=== PATIENT | female | born 1980 | race Caucasian/White ===

== ENCOUNTER 2018-04-05 15:43 | Emergency (ER) | END 2018-04-05 18:55 | disposition home or self-care (01) ==

== ENCOUNTER 2018-10-21 11:03 | Emergency (ER) | payer OTHER ==
[~2018-10-21] VITALS: Ht 167.6 cm; Wt 98.6 kg
[~2018-10-21 11:03] MED LIST: ALPR2TAB PO; BUPR-165 PO; TEMA30CA6 PO
[2018-10-21 11:07] VITALS: Ht 167.6 cm; Wt 98.6 kg
--- NOTE | 2018-10-21 14:15 | ERD ---
ER Documentation Chief Complaint Chief Complaint C/O MID EPIGATRIC PAIN X 2 DAYS. HPI 38-year-old female, with a history of bipolar disease and cholelithiasis, presents the emergency department, complaining of mid abdominal pain for 2 days, associated with 3 episodes of diarrhea and dysuria, after, allegedly, and ingestion of fatty food. Otherwise, no fever, no chills, no respiratory symptoms. ROS All systems reviewed and are negative except as per history of present illness. Medications Home Meds Active Scripts Ibuprofen* (Motrin*) 400 Mg Tab, 400 MG PO Q8, #15 TAB Prov:ANIYA FERRARA MD 10/21/18 Ranitidine Hcl* (Zantac*) 150 Mg Tablet, 150 MG PO BID PRN for EPIGASTRIC PAIN, #20 TAB Prov:ANIYA FERRARA MD 10/21/18 Bupropion Hcl* (Wellbutrin SR*) 150 Mg Tablet.sa, 150 MG PO BID, #14 TAB.SA Prov:REJI JACKSON PA-C 04/05/18 Temazepam* (Restoril*) 30 Mg Capsule, 30 MG PO HS PRN for INSOMNIA, #7 CAP Prov:REJI JACKSON PA-C 04/05/18 Alprazolam* (Xanax*) 2 Mg Tablet, 2 MG PO QHS PRN for ANXIETY, #5 TAB Prov:REJI JACKSON PA-C 04/05/18 Allergies Allergies: Coded Allergies: Penicillins (Verified Allergy, Unknown, 10/21/18) sulfamethoxazole (Verified Allergy, Unknown, 10/21/18) trimethoprim (Verified Allergy, Unknown, 10/21/18) PMhx/Soc History of Surgery: Yes (left hand sx) Anesthesia Reaction: No Hx Neurological Disorder: No Hx Respiratory Disorders: Yes (ASTHMA) Hx Cardiac Disorders: No Hx Psychiatric Problems: No Hx Miscellaneous Medical Probl: Yes (ARTHRITIS, BIPOLAR DZ, cholelithiasis x2 years ago) Hx Alcohol Use: No Hx Substance Use: No Hx Tobacco Use: No Smoking Status: Never smoker FmHx Family History: No diabetes, No coronary disease Physical Exam Vitals Vital Signs Date Temp Pulse Resp B/P (MAP) Pulse Ox O2 O2 Flow FiO2 Time Delivery Rate 10/21/18 98.4 75 19 163/79 99 11:07 (107) Physical Exam Const: No acute distress Head: Atraumatic Eyes: Normal Conjunctiva ENT: Normal External Ears, Nose and Mouth. Neck: Full range of motion. No meningismus. Resp: Clear to auscultation bilaterally Cardio: Regular rate and rhythm, no murmurs Abd: Soft, tender in epigastric area, no peritoneal signs. Skin: No petechiae or rashes Back: No midline or flank tenderness Ext: No cyanosis, or edema Neur: Awake and alert Psych: Normal Mood and Affect Result Diagram: 10/21/18 1453 10/21/18 1453 Results 24 hrs Laboratory Tests Test 10/21/18 14:53 10/21/18 15:11 10/21/18 15:13 White Blood Count 9.1 10^3/ul Red Blood Count 4.27 10^6/ul Hemoglobin 12.3 g/dl Hematocrit 38.9 % Mean Corpuscular Volume 91.1 fl Mean Corpuscular Hemoglobin 28.8 pg Mean Corpuscular Hemoglobin Concent 31.6 g/dl Red Cell Distribution Width 13.0 % Platelet Count 384 10^3/UL Mean Platelet Volume 9.6 fl Immature Granulocytes % 0.400 % Neutrophils % 66.6 % Lymphocytes % 24.3 % Monocytes % 6.5 % Eosinophils % 1.8 % Basophils % 0.4 % Nucleated Red Blood Cells % 0.0 /100WBC Immature Granulocytes # 0.040 10^3/ul Neutrophils # 6.0 10^3/ul Lymphocytes # 2.2 10^3/ul Monocytes # 0.6 10^3/ul Eosinophils # 0.2 10^3/ul Basophils # 0.0 10^3/ul Nucleated Red Blood Cells # 0.0 10^3/ul Sodium Level 143 mmol/L Potassium Level 4.0 mmol/L Chloride Level 108 mmol/L Carbon Dioxide Level 25 mmol/L Anion Gap 10 Blood Urea Nitrogen 13 mg/dl Creatinine 0.83 mg/dl Est Glomerular Filtrat Rate mL/min > 60 mL/min Glucose Level 94 mg/dl Calcium Level 9.3 mg/dl Total Bilirubin 0.1 mg/dl Direct Bilirubin 0.00 mg/dl Indirect Bilirubin 0.1 mg/dl Aspartate Amino Transf (AST/SGOT) 26 IU/L Alanine Aminotransferase (ALT/SGPT) 14 IU/L Alkaline Phosphatase 79 IU/L Total Protein 7.4 g/dl Albumin 4.4 g/dl Globulin 3.00 g/dl Albumin/Globulin Ratio 1.46 Lipase 77 U/L Bedside Urine pH (LAB) 6.0 Bedside Urine Protein (LAB) Negative Bedside Urine Glucose (UA) Negative Bedside Urine Ketones (LAB) Negative Bedside Urine Blood Trace-intact Bedside Urine Nitrite (LAB) Negative Bedside Urine Leukocyte Esterase (L Negative POC Beta HCG, Qualitative NEGATIVE Current Medications Medications Dose Sig/Praful Start Time Status Last (Trade) Ordered Route PRN Stop Time Admin Dose Reason Admin 40 ml ONCE STAT 10/21/18 DC 10/21/18 Miscellaneous PO 14:29 10/21/18 14:49 Medication 14:39 (Gi Cocktail (2)) Radiology Main Line: [phone] DIAGNOSTIC IMAGING REPORT Patient: ALIDA DISLA : 1980 Age: 38 Sex: F MR #: [id number] DOS: 10/21/18 1429 Ordering MD: ANIYA FERRARA MD Location: [facility] Room/Bed: PROCEDURE: US Abdomen. CLINICAL INDICATION: abdominal pain TECHNIQUE: Multiple real-time images were acquired of the patient's right upper quadrant abdomen and retroperitoneum utilizing a high resolution transducer. COMPARISON: None FINDINGS: The liver demonstrates normal echogenicity. The liver is normal in size and no focal solid lesions are seen. The liver measures 17.4 cm in length. The portal vein is patent with normal direction of flow. No intrahepatic biliary dilatation is seen. Multiple calcified gallstones are identified within the gallbladder. There is no pericholecystic fluid or gallbladder wall thickening. The common bile duct measures 4 mm in maximal dimension. The visualized portions of the pancreas are unremarkable. The tail of the hough creas is not seen. No free fluid is identified. The right kidney is normal in size, and demonstrate normal echogenicity and cortical thickness. The right kidney measures 10.6 cm in long dimension. There is no evidence of hydronephrosis. There are no kidney stones. RPTAT: AA IMPRESSION: Cholelithiasis. .Derek Hurley MD, MD Date Time Electronically viewed and signed by .Derek Hurley MD, MD on 10/21/2018 14:55 .S/ CC: ANIYA FERRARA MD [phone] Procedures/MDM Vital signs stable. Differential diagnosis include but not limited to: UTI, colitis, gastroenteritis, kidney stones, irritable bowel syndrome, inflammatory bowel syndrome, malabsorption syndrome, cholelithiasis, food intolerance, medication side effect, pancreatitis, diverticulitis, bowel obstruction. Physical examination and clinical presentation consistent most likely with biliary colic without evidence of acute cholecystitis or choledocholithiasis. During the ED course the patient remained stable, no new complaints. Results and clinical impression discussed with the patient who agrees with management. The patient is stable to be treated outpatient and will be discharged home; some side effects of prescribed medications (headache, rash, nausea, vomiting, diarrhea, drowsiness, habituation, bleeding, hypertension, interactions with other medications) were reviewed. Follow up with the primary care provider in the next 48h is recommended. If symptoms persist, worsen or new symptoms develop, then patient should return to the ED immediately. Instructions explained and given directly by me to the patient with acknowledgment and demonstrated understanding. Disclaimer: Inadvertent spelling and grammatical errors are likely due to EHR/dictation software use and do not reflect on the overall quality of patient care. Also, please note that the electronic time recorded on this note does not necessarily reflect the actual time of the patient encounter. Departure Diagnosis: Primary Impression: Abdominal pain Additional Impression: Cholelithiasis Condition: Stable Additional Instructions: Thank you very much for allowing us to participate in your care. Your health and safety is our top priority at [facility]. Call your primary care doctor TOMORROW for an appointment during the next 2-4 days and bring all the information and medications prescribed. Have prescriptions filled and follow precisely the directions on the label. If the symptoms get worse and your provider is unavailable, return to the Emergency Department immediately. ANIYA FERRARA MD Oct 21, 2018 14:15
[2018-10-21] MEDS ORDERED: LIDOCAINE/MYLANTA 40 ML BTL PO STA (14:29)
[2018-10-21] MEDS ORDERED: IBUP-1561 PO (15:41)
[2018-10-21] MEDS ORDERED: RANI150T35 PO (15:41)
== END 2018-10-21 15:58 | disposition home or self-care (01) ==
LOC: FTE 11:03
DX: K80.20 Calculus of gallbladder without cholecystitis without obstruction (principal); J45.909 Unspecified asthma, uncomplicated
CPT/HCPCS: 76705; 80053; 81003; 81025; 83690; 85025; Z7502; Z7610

== ENCOUNTER 2019-03-18 14:47 | Emergency (ER) | payer OTHER ==
[~2019-03-18] VITALS: Ht 167.6 cm; Wt 89.6 kg
[~2019-03-18 14:47] MED LIST changes: +IBUP-1561 PO; +RANI150T35 PO
[2019-03-18 14:49] VITALS: Ht 167.6 cm; Wt 89.6 kg
[2019-03-18] MEDS ORDERED: SOD CHLORIDE 0.9% 1,000 ML IV STA (15:31)
[2019-03-18] MEDS ORDERED: AZITHROMYCIN 250 MG TAB PO STA (15:31)
[2019-03-18] MEDS ORDERED: CEFTRIAXONE 250 MG INJ IM STA (15:31)
[2019-03-18] MEDS ORDERED: KETOROLAC 30 MG INJ IV STA (15:31)
--- NOTE | 2019-03-18 15:54 | ERD ---
ER Documentation Chief Complaint Chief Complaint pelvic pain , painful urination x 1 month HPI This is a 39-year-old female with a nonsignificant past medical history presents ED with complaints of off-and-on pelvic pain for the past month. Patient states that she was seen at [facility] and started on antibiotics for UTI, a nd pelvic pain went away but it has since recurred. Patient states that she was also recently treated for yeast infection but she still continues to have the pelvic pain. Patient localizes pelvic pain to the left lower pelvis. Admits to some vaginal pain, dysuria and constipation. Denies vaginal discharge, hematuria, nausea, vomiting, diarrhea, fever, chills and all other symptoms. Patient admits to being possibly exposed to an STD as she had sexual intercourse with a new partner in January. Patient denies any chance of being stating that she has been on control for many years. ROS All systems reviewed and are negative except as per history of present illness. Medications Home Meds Active Scripts Ibuprofen* (Motrin*) 400 Mg Tab, 400 MG PO Q8, #15 TAB Prov:ANIYA FERRARA MD 10/21/18 Ranitidine Hcl* (Zantac*) 150 Mg Tablet, 150 MG PO BID PRN for EPIGASTRIC PAIN, #20 TAB Prov:ANIYA FERRARA MD 10/21/18 Bupropion Hcl* (Wellbutrin SR*) 150 Mg Tablet.sa, 150 MG PO BID, #14 TAB.SA Prov:REJI JACKSON PA-C 04/05/18 Temazepam* (Restoril*) 30 Mg Capsule, 30 MG PO HS PRN for INSOMNIA, #7 CAP Prov:REJI JACKSON PA-C 04/05/18 Alprazolam* (Xanax*) 2 Mg Tablet, 2 MG PO QHS PRN for ANXIETY, #5 TAB Prov:REJI JACKSON PA-C 04/05/18 Allergies Allergies: Coded Allergies: Penicillins (Verified Allergy, Unknown, 10/21/18) sulfamethoxazole (Verified Allergy, Unknown, 10/21/18) trimethoprim (Verified Allergy, Unknown, 10/21/18) PMhx/Soc History of Surgery: Yes (left hand sx) Anesthesia Reaction: No Hx Neurological Disorder: No Hx Respiratory Disorders: Yes (ASTHMA) Hx Cardiac Disorders: No Hx Psychiatric Problems: No Hx Miscellaneous Medical Probl: Yes (ARTHRITIS, BIPOLAR DZ, cholelithiasis x2 years ago) Hx Alcohol Use: No Hx Substance Use: No Hx Tobacco Use: No FmHx Family History: No diabetes Physical Exam Vitals Vital Signs Date Temp Pulse Resp B/P (MAP) Pulse Ox O2 O2 Flow FiO2 Time Delivery Rate 03/18/19 99.1 74 18 154/93 98 14:49 (113) Physical Exam Physical Exam Vitals signs: Reviewed by me. General: Well developed, well nourished, in no acute distress. Patient is awake and alert. Head: Normocephalic, atraumatic. Eyes: Normal conjunctiva, Pupils PERRLA, EOM intact grossly ENT: Pharynx is clear, Moist mucous membranes, external ears, nose and mouth normal Neck: Supple, no masses, lymphadenopathy or JVD Respiratory: Clear to auscultation bilaterally with no wheezing, rhonchi, rales, no distress Cardiovascular: RRR, no murmurs, rubs, or gallops Abdominal: Soft, nondistended, no peritoneal signs, no rigidity, no surgical abdomen, bowel sounds present all 4 quadrants, mild tenderness palpation in the left lower abdomen, suprapubic tenderness present, nontender to light deep palpation in all other areas Pelvic Exam: Oil Extractor present External Genitalia: Normal Skin Speculum: Thick white curdy discharge noted along vaginal canal and along cervix Bimanual: No adnexal masses or tenderness, No CMT MSK: No edema, no unilateral swelling, 5/5 strength Back: No midline tenderness. No flank tenderness Neurologic: Alert and oriented, moving all extremities, normal speech, no focal weakness, no cerebellar signs. Normal mentation Skin: warm and dry, No rash Psych: Normal mood Result Diagram: 03/18/19 1600 03/18/19 1600 Results 24 hrs Laboratory Tests Test 03/18/19 16:00 03/18/19 16:01 White Blood Count 9.2 10^3/ul Red Blood Count 4.27 10^6/ul Hemoglobin 12.5 g/dl Hematocrit 38.5 % Mean Corpuscular Volume 90.2 fl Mean Corpuscular Hemoglobin 29.3 pg Mean Corpuscular Hemoglobin Concent 32.5 g/dl Red Cell Distribution Width 12.4 % Platelet Count 396 10^3/UL Mean Platelet Volume 10.3 fl Immature Granulocytes % 0.200 % Neutrophils % 71.8 % Lymphocytes % 19.9 % Monocytes % 6.6 % Eosinophils % 1.3 % Basophils % 0.2 % Nucleated Red Blood Cells % 0.0 /100WBC Immature Granulocytes # 0.020 10^3/ul Neutrophils # 6.6 10^3/ul Lymphocytes # 1.8 10^3/ul Monocytes # 0.6 10^3/ul Eosinophils # 0.1 10^3/ul Basophils # 0.0 10^3/ul Nucleated Red Blood Cells # 0.0 10^3/ul Urine Color STRAW Urine Clarity CLEAR Urine pH 5.0 Urine Specific [place] 1.008 Urine Ketones TRACE mg/dL Urine Nitrite NEGATIVE mg/dL Urine Bilirubin NEGATIVE mg/dL Urine Urobilinogen NEGATIVE mg/dL Urine Leukocyte Esterase NEGATIVE [place]/ul Urine Microscopic RBC 0 /HPF Urine Microscopic WBC 1 /HPF Urine Hemoglobin 1+ mg/dL Urine Glucose NEGATIVE mg/dL Urine Total Protein NEGATIVE mg/dl Sodium Level 142 mmol/L Potassium Level 4.1 mmol/L Chloride Level 109 mmol/L Carbon Dioxide Level 24 mmol/L Anion Gap 9 Blood Urea Nitrogen 7 mg/dl Creatinine 0.67 mg/dl Est Glomerular Filtrat Rate mL/min > 60 mL/min Glucose Level 103 mg/dl Calcium Level 9.2 mg/dl Total Bilirubin 0.6 mg/dl Direct Bilirubin 0.00 mg/dl Indirect Bilirubin 0.6 mg/dl Aspartate Amino Transf (AST/SGOT) 22 IU/L Alanine Aminotransferase (ALT/SGPT) 16 IU/L Alkaline Phosphatase 79 IU/L Total Protein 7.3 g/dl Albumin 4.2 g/dl Globulin 3.10 g/dl Albumin/Globulin Ratio 1.35 Lipase 46 U/L POC Beta HCG, Qualitative NEGATIVE Current Medications Medications Dose Sig/Praful Start Time Status Last (Trade) Ordered Route PRN Stop Time Admin Dose Reason Admin Sodium 1,000 ml @ Q1H STAT 03/18/19 DC 03/18/19 Chloride 1,000 mls/hr IV 15:31 16:07 03/18/19 16:30 1,000 mg ONCE STAT 03/18/19 DC 03/18/19 Azithromycin PO 15:31 15:52 (Zithromax) 03/18/19 15:39 Ceftriaxone 250 mg ONCE STAT 03/18/19 DC 03/18/19 Sodium IM 15:31 15:52 (Rocephin) 03/18/19 15:39 Ketorolac 30 mg ONCE STAT 03/18/19 DC 03/18/19 Tromethamine IV 15:31 15:53 (Toradol) 03/18/19 15:39 Morphine 4 mg ONCE STAT 03/18/19 DC 03/18/19 Sulfate IV 17:06 17:44 (morphine) 03/18/19 17:07 Ondansetron 4 mg ONCE STAT 03/18/19 DC 03/18/19 HCl (Zofran IV 17:06 17:44 Inj) 03/18/19 17:07 Procedures/MDM EKG, MONITORS, & DIAGNOSTIC IMAGING: [place] [address] Radiology Main Line: [phone] DIAGNOSTIC IMAGING REPORT Patient: ALIDA DISLA : 1980 Age: 39 Sex: F MR #: [id number] DOS: 03/18/19 0000 Ordering MD: MARCO ANTONIO HERNANDEZ PA-C Location: [facility] Room/Bed: PROCEDURE: US Pelvis. CLINICAL INDICATION: Left pelvic pain TECHNIQUE: Multiple sonographic images of the pelvis were obtained utilizing a transabdominal and endovaginal technique. The images were reviewed on a PACS workstation. COMPARISON: CT abdomen pelvis earlier same date FINDINGS: The uterus is anteverted and measures 6.1 x 3.0 x 3.6 cm. The uterus of normal contour and echogenicity. There is a thin well-demarcated endometrial stripe co mplex which measures 2.6 millimeters in transverse diameter. There is no fluid in the canal. . The right ovary was not confidently visualized. The left ovary has a normal echotexture and measures 2.3 x 1.7 x 2.9 cm. No adnexal masses are noted. There is normal arterial flow to the left ovary on color-flow Doppler imaging. No solid pelvic masses seen. There is no free fluid in the pelvis. IMPRESSION: Normal uterus left ovary. Nonvisualization right ovary.. .Palmer Hester MD, Date Time Electronically viewed and signed by .Palmer Hester MD, MD on 03/18/2019 17:42 .A/ CC: MARCO ANTONIO HERNANDEZ PA-C [id number] [place] [address] Radiology Main Line: [phone] DIAGNOSTIC IMAGING REPORT Patient: ALIDA DISLA : 1980 Age: 39 Sex: F MR #: [id number] DOS: 03/18/19 1531 Ordering MD: MARCO ANTONIO HERNANDEZ PA-C Location: [facility] Room/Bed: PROCEDURE: CT abdomen and pelvis without contrast. CLINICAL INDICATION: Abdominal Pain TECHNIQUE: CT scan of the abdomen and pelvis without oral contrast was performed and is reconstructed at 2.5 mm contiguous axial intervals from the dome of the diaphragm to the inferior pubic rami.. The patient was scanned without intravenous contrast. Sagittal and coronal reformatted images were obtained from the axial source images. The calculated radiation dose measures 1075 mGy centimeters. The CTDI measures 17.7 mGy. Individualized dose optimization technique was used for the performance of this exam. This included 1. Automated exposure control. 2. Adjustment of the mA and / or kV according to the patient's size. 3. Use of iterative reconstructed technique. DICOM images are available. COMPARISON: Abdominal ultrasound October 21, 2018 FINDINGS: The lung bases are clear of any infiltrate or nodule. No effusion is seen. The liver is of normal size, contour and attenuation with no mass or ductal dilatation. multiple gallstones are visualized. No splenic, adrenal or pancreatic abnormalities present. Kidneys are of normal size and contour. No hydronephrosis, calculus or mass Is seen. Ureters are of normal course and caliber with no stone. No bladder mass or stone is present. Uterus and ovaries appear normal. There is no aneurysm. No adenopathy is present. No bowel mass or obstruction is present. The appendix is not confidently visualized.. No phlegmon, ascites or pneumoperitoneum is visualized. The osseous structures are intact. IMPRESSION: No evidence of urolithiasis, obstructive uropathy or diverticulitis. Nonvisualization appendix. Cholelithiasis.. .Palmer Hester MD, MD Date Time Electronically viewed and signed by .Palmer Hester MD, on 03/18/2019 16:49 .A/ CC: MARCO ANTONIO HERNANDEZ PA-C [id number] LAB INTERPRETATION: CBC shows no evidence of hemorrhage or infection Chemistry shows no evidence of significant electrolyte abnormalities or renal insufficiency Liver function test shows no evidence of acute biliary or hepatic dysfunction Lipase shows no evidence of pancreatitis Urine negative Urinalysis shows 1 WBC, no RBCs, no leukocyte esterase no nitrite Wet mount unremarkable GONORRHEA CHLAMYDIA PENDING ER COURSE: The patient was given IV NS, toradol, ceftriaxone, azithromycin, morphine, Zofran The medication was well tolerated and the patient reports improvement in symptoms. The patient was stable throughout ED course. I kept the patient and/or family informed of laboratory and diagnostic imaging results throughout the emergency room course. The patient was promptly evaluated and a treatment plan was devised based on H&P and other data. This plan was discussed with the patient who agreed and had no further questions or concerns prior to discharge. MEDICAL DECISION MAKING: This is a 39-year-old female with a nonsignificant past medical history presents ED with complaints of off-and-on pelvic pain for the past month. Patient states that she was seen at [facility] and started on antibiotics for UTI, and pelvic pain went away but it has since recurred. Patient states that she was also recently treated for yeast infection but she still continues to have the pelvic pain. Pelvic exam is remarkable for curdy white discharge. Wet mount was unremarkable. We will treat patient for a yeast infection based off of physical examination. Patient also has had a new sexual partner in January and has possibly been exposed to STDs. After long discussion with patient she would like to proceed with being treated for gonorrhea and chlamydia prophylactically. Patient was given 250 IM ceftriaxone and [address] of the abdomen and pelvis is unremarkable. Ultrasound is also unremarkable. At this time there is no intra-abdominal or gynecologic emergency. No evidence of ectopic , ovarian torsion, tubo-ovarian abscess, pelvic inflammatory disease, appendicitis, small bowel obstruction, perforated viscus, cholecystitis, among others. Vitals are stable patient can be managed with close outpatient follow-up. Advised patient follow-up with her primary care in the next 48 hours. Return to ED with any worsening symptoms. Patient was given copies of all imaging and blood work done in the emergency department today. DISPOSITION PLAN: We discussed follow up with the patient's primary care doctor within 24 to 48 hours. Patient counseled regarding my diagnostic impression and care plan. Prior to discharge all questions answered. Pt agrees with treatment plan and understands strict return precautions. Precautionary instructions provided including instructions to return to the ER if not improving or for any worsening or changing symptoms or concerns. SPECIALIST FOLLOW UP RECOMMENDED: None Patient has been advised to follow up with primary care in 1-2 days. Disclaimer: Inadvertent spelling and grammatical errors are likely due to EHR/dictation software use and do not reflect on the overall quality of patient care. Also, please note that the electronic time recorded on this note does not necessarily reflect the actual time of the patient encounter. Departure Diagnosis: Primary Impression: Pelvic pain Additional Impressions: Vaginal discharge Exposure to STD Condition: Stable Patient Instructions: If You Think You Have an STD, Pelvic Pain, Unknown Cause, Vaginitis, Jessy Referrals: COMMUNITY CLINICS Additional Instructions: Patient advised to return to the ED immediately for new or worsening symptoms. Patient advised to follow up with primary care provider in the next 24-48 hours. Patient verbalized understanding and agrees with treatment plan and course of action. If patient has no primary care they may follow up with one of the community clinics listed on the following page or one of the options listed below [facility] [address] [place] [id number] or [facility] [address] [place] [address] [address] [address] MARCO ANTONIO HERNANDEZ PA-C Mar 18, 2019 15:54
[2019-03-18] MEDS ORDERED: ONDANSETRON 4 MG INJ IV STA (17:06)
[2019-03-18] MEDS ORDERED: morphine 4 MG/ML VIAL IV STA (17:06)
[2019-03-18] MEDS ORDERED: IBUP-1542 PO (18:23)
[2019-03-18] MEDS ORDERED: FLUC150T PO (18:23)
[2019-03-18 18:46] VITALS: BP 139/79; PULSE 70; RESP 18
== END 2019-03-18 18:47 | disposition home or self-care (01) ==
LOC: FTE 14:47
DX: N89.8 Other specified noninflammatory disorders of vagina (principal); J45.909 Unspecified asthma, uncomplicated; Z20.2 Contact with and (suspected) exposure to infections with a predominantly sexual mode of transmission
CPT/HCPCS: 36415; 74176; 76830; 76856; 80053; 81001; 81025; 83690; 85025; 87210; 87591; 96372; 96374; 96375; J0696; J1885; J2270; J2405; J7030; Z7502; Z7610